=== PATIENT | female | born 1940 | race Caucasian/White ===

== ENCOUNTER → 2019-03-22 | Outpatient (CLI) | payer MEDICARE ==
[2019-03-23 15:30] LABS: HEMATOCRIT 38 % (35-52); HEMOGLOBIN 12.8 G/DL (11.5-16.0); LYMPHOCYTES % (AUTO) 42 % (12-44); MEAN CORPUSCULAR HEMOGLOBIN 31 PG (25-34); MEAN CORPUSCULAR HGB CONC 34 G/DL (32-36); MEAN CORPUSCULAR VOLUME 92 FL (80-99); MEAN PLATELET VOLUME 12.9 FL (7.4-10.4); MONOCYTES % (AUTO) 7 % (0-12); NEUTROPHILS % (AUTO) 37 % (42-75); PLATELET COUNT 246 10^3/uL (130-400); RED CELL DISTRIBUTION WIDTH 13.2 % (10.0-14.5); WHITE BLOOD COUNT 11.8 10^3/uL (4.3-11.0)
[2019-03-23 15:31] LABS: BAND NEUTROPHILS 0 %; BASOPHILS % (AUTO) 0 % (0-10); EOSINOPHILS # (AUTO) 1.6 10^3/uL (0.0-0.3); EOSINOPHILS % (AUTO) 13 % (0-10); LYMPHOCYTES % (MANUAL) 45 %; MONOCYTES # (AUTO) 0.8 X 10^3 (0.0-1.0); NEUTROPHILS # (AUTO) 4.4 X 10^3 (1.8-7.8); NEUTROPHILS % (MANUAL) 34 %
[2019-03-23 15:32] LABS: ABSOLUTE RETIC # 62 10e9/L (24-90); BASOPHILS % (MANUAL) 0 %; EOSINOPHILS % (MANUAL) 15 %; MONOCYTES % (MANUAL) 6 %; RBC MORPH NORMAL; RETICULOCYTE % 1.48 % (0.50-2.40)
== END ==
LOC: GIR 15:41
PROVIDERS: ATTEND Family Medicine
DX: D72.820 Lymphocytosis (symptomatic) (principal)
CPT/HCPCS: 85007; 85025; 85045

== ENCOUNTER → 2022-08-24 | Outpatient (CLI) | payer MEDICARE ==
[2022-08-24 14:37] LABS: ABSOLUTE RETIC # 84 10e9/uL (24-90); RETICULOCYTE % 1.97 % (0.50-2.40)
[2022-08-24 15:47] LABS: EOSINOPHILS % (MANUAL) 3 %; LYMPHOCYTES % (MANUAL) 52 %; MONOCYTES % (MANUAL) 2 %; NEUTROPHILS % (MANUAL) 43 %
[2022-08-24 15:48] LABS: RBC MORPH NORMAL
== END ==
LOC: LABNPT 14:27
PROVIDERS: ATTEND Family Medicine
DX: Z01.89 Encounter for other specified special examinations (principal)
CPT/HCPCS: 85007; 85045; 85055